=== PATIENT | male | born 1985 | race Caucasian/White ===

== ENCOUNTER 2019-08-19 12:27 | Emergency (ER) | payer SELFPAY ==
[~2019-08-19] VITALS: Ht 188 cm; Wt 100.0 kg
[~2019-08-19 12:27] MED LIST: METF500T16 PO
--- NOTE | 2019-08-19 13:01 | RAD ---
AP Internal and external rotation views with Y-View of the left shoulder were performed. Indication: Shoulder pain after fall Comparison: None. No fracture, glenohumeral or AC joint subluxation, or significant degenerative changes are seen. The subacromial space is maintained. Impression: 1. Unremarkable exam of the left shoulder. Electronically signed by: Tang Townsend MD (08/19/2019 12:58 PM) [id number]
--- NOTE | 2019-08-19 13:04 | PHYS DOC ---
Past History Past Medical History: Diabetes Past Surgical History: Appendectomy, Tonsillectomy Alcohol Use: Rarely Drug Use: None General Adult EDM: Chief Complaint: SHOULDER INJURY HPI: HPI: 33-year-old male presents with left shoulder pain. The patient was sitting on a railing and smoking when he slipped and fell off. He landed onto his left shoulder. He has been taking ibuprofen, icy hot patch, ice, and still has significant discomfort. He works as a package wrapper. He heavier packages really irritate the pain. It is mostly in the posterior superior part of his shoulder. He is able to move his arm freely in full range of motion. Patient denies any other injuries. Review of Systems: Review of Systems: Constitutional: Denies fever or chills Eyes: Denies change in visual acuity HENT: Denies nasal congestion or sore throat Respiratory: Denies cough or shortness of breath Cardiovascular: Denies chest pain or edema GI: Denies abdominal pain, nausea, vomiting, bloody stools or diarrhea : Denies dysuria Musculoskeletal: Left shoulder pain Integument: Denies rash Neurologic: Denies headache, focal weakness or sensory changes Endocrine: Denies polyuria or polydipsia Lymphatic: Denies swollen glands Psychiatric: Denies depression or anxiety Heart Score: Risk Factors: Risk Factors: DM, Current or recent (<one month) smoker, HTN, HLP, family history of CAD, obesity. Risk Scores: Score 0 - 3: 2.5% MACE over next 6 weeks - Discharge Home Score 4 - 6: 20.3% MACE over next 6 weeks - Admit for Clinical Observation Score 7 - 10: 72.7% MACE over next 6 weeks - Early Invasive Strategies Allergies: Allergies: Allergies Coded Allergies Type Severity Reaction Last Updated Verified No Known Drug Allergies 03/24/14 No Physical Exam: PE: Constitutional: Well developed, well nourished, no acute distress, non-toxic appearance. [] HENT: Normocephalic, atraumatic, bilateral external ears normal, oropharynx moist, no oral exudates, nose normal. [] Eyes: PERRLA, EOMI, conjunctiva normal, no discharge. [] Neck: Normal range of motion, no tenderness, supple, no stridor. [] Cardiovascular:Heart rate regular rhythm, no murmur [] Lungs & Thorax: Bilateral breath sounds clear to auscultation [] Abdomen: Bowel sounds normal, soft, no tenderness, no masses, no pulsatile masses. [] Skin: Warm, dry, no erythema, no rash. [] Back: No tenderness, no CVA tenderness. [] Extremities: Tenderness of the superior lateral left shoulder, no obvious deformity or ecchymosis. [] Neurologic: Alert and oriented X 3, normal motor function, normal sensory function, no focal deficits noted. [] Psychologic: Affect normal, judgement normal, mood normal. [] EKG: EKG: [] Radiology/Procedures: Radiology/Procedures: [] Impressions: AP Internal and external rotation views with Y-View of the left shoulder were performed. Indication: Shoulder pain after fall Comparison: None. No fracture, glenohumeral or AC joint subluxation, or significant degenerative changes are seen. The subacromial space is maintained. Impression: 1. Unremarkable exam of the left shoulder. Electronically signed by: Kathy Mora MD (08/19/2019 12:58 PM) [id number] DICTATED AND SIGNED BY: KATHY MORA MD DATE: 08/19/19 1258 CC: ZAC STALLWORTH DO; PCP,NO ~ Course & Med Decision Making: Course & Med Decision Making Pertinent Labs and Imaging studies reviewed. (See chart for details) The patient's shoulder x-ray is negative for fracture. I believe the patient just has a strain. I will give him a short course of Mitchell 5/325 especially to help him sleep. I will also restrict him to 25 pounds for his job for the next several days. He is stable for discharge at this time. [] Dragon Disclaimer: Davon Disclaimer: This electronic medical record was generated, in whole or in part, using a voice recognition dictation system. Departure Departure: Impression: Primary Impression: Left shoulder pain Qualified Codes: M25.512 - Pain in left shoulder Disposition: HOME/RESIDENCE PRIOR TO ADM Condition: STABLE Referrals: PCP,NO (PCP) Patient Instructions: Shoulder Pain, Sbyn-[id number] Scripts Hydrocodone Bit/Acetaminophen (NORCO 5-325 TABLET) 1 Each Tablet 1 TAB PO PRN Q6HRS PRN for PAIN, #10 TAB 0 Refills Prov: ZAC STALLWORTH DO 08/19/19 Justification of Admission: Justification of Admission: Justification of Admission Dx: N/A ZAC STALLWORTH DO Aug 19, 2019 13:04
[2019-08-19] MEDS ORDERED: HYDR-3165 PO (13:15)
[2019-08-19 19:01] VITALS: BP 134/78
== END 2019-08-19 13:20 | disposition home or self-care (01) ==
LOC: ER 12:27
DX: M25.512 Pain in left shoulder (principal); E11.9 Type 2 diabetes mellitus without complications; G89.11 Acute pain due to trauma; W18.39XA Other fall on same level, initial encounter; Y93.89 Activity, other specified; Y99.8 Other external cause status; Y92.89 Other specified places as the place of occurrence of the external cause
CPT/HCPCS: 73030; 99283